=== PATIENT | female | born 1930 | race Caucasian/White ===

== ENCOUNTER 2016-12-13 15:34 | Emergency (ER) | payer OTHER ==
[~2016-12-13] VITALS: Ht 149.9 cm; Wt 94.5 kg
[~2016-12-13 15:34] MED LIST: ADVAIR 250/501 DISK IH; ADVAIR HFA120 INHALA IH; ASCORBIC ACID500 M3 PO; ASPIR-LOW81 MG PO; Amoxicillin PO; Aspirin E.C. PO; B-12 COMPL1000 MCG/1 SC; BETIMOL 0.100 DROP/5 RIGHT EYE; BETIMOL15 ML RIGHT EYE; Biaxin PO; C COMPLEX500 MG PO; CALCIUM; CALCIUM 500 MG1 EACH PO; CALCIUM 600 +1 EA12 PO; CALCIUM 600 +1 EACH PO; CALCIUM PO; CALCIUM500 M4 PO; CATAPRES0.1 MG; CATAPRES0.1 MG PO; CLONIDINE HCL0.1 MG PO; COUMADIN1 MG PO; COUMADIN2.5 MG PO; COUMADIN5 MG PO; COZAAR50 MG PO; CRANBERRY; CRANBERRY PO; CRANBERRY TABL1 EACH PO; CRANBERRY425 MG PO; CRANBERRY450 M1 PO; CYANOCOBAL1000 MCG/2 IM; Catapres PO; Colace PO; Coumadin,Jantoven PO; Cranberry PO; D3; DELTASONE20 M1 PO; DILANTIN INFATA50 MG PO; DILANTIN100 MG; DILANTIN100 MG PO; DILANTIN50 MG PO; DIOVAN HCT 11 TABLET PO; DIOVAN HCT 81 TABLET PO; DIOVAN PO; DOCUSATE SODIU100 MG PO; DULCOLAX10 MG PR; DUONEB 2.5-0.5 M3 ML AEROSOL; Dilantin PO; Diovan HCT 160/12.5 PO; Dulcolax PR; DuoNeb IH; ENDOCET 5-3251 EACH PO; FERROUS SULFAT325 MG PO; FISH OIL 1,0001 EA10 PO; FLEET MINERAL133 ML PR; FUROSEMIDE20 MG PO; FUROSEMIDE40 MG PO; GLUCOPHAGE1000 MG PO; Glucophage PO; Hydrodiuril,Oretic,E PO; IRON PO; IRON325 M1 PO; K-Dur PO; KEPPRA250 MG PO; KLOR-CON M2020 MEQ PO; LASIX20 MG PO; LASIX40 MG PO; LECITHIN PO; LEVAQUIN750 MG PO; LEVETIRACETAM250 MG PO; LEVOFLOXACIN500 MG PO; LEVOTHROID25 MCG PO; LEVOTHYROXINE PO; LEVOTHYROXINE25 MCG PO; LIDOCAINE700 MG TD; LOPRESSOR25 MG PO; LOPRESSOR50 MG PO; LOSARTAN POTASS25 MG PO; LOSARTAN POTASS50 MG PO; LOSARTAN-HCTZ1 EAC1 PO; Lasix PO; Levothroid,Synthroid PO; Lopressor PO; Lovenox SC; MECLIZINE HCL25 MG PO; METFORMIN HCL1000 M1; METFORMIN HCL1000 M1 PO; METFORMIN HCL1000 MG PO; METFORMIN HCL500 MG PO; METOPROLOL PO; METOPROLOL SUCC50 MG PO; METOPROLOL TART25 MG; METOPROLOL TART25 MG PO; METRONIDAZOLE500 MG PO; MILK OF MAGN PO; MIRTAZAPINE15 MG; MIRTAZAPINE15 MG PO; MIRTAZAPINE7.5 MG PO; Magic Mouthwash Garg MM; Milk Of Magnesia,MOM PO; Miralax, Glycolax PO; NEXIUM40 M1 PO; NEXIUM40 MG PO; NOVOLOG PE100 UNITS/ SC; NexIUM PO; OCUVITE ADULT1 EACH PO; OCUVITE LUTEIN1 EACH PO; OCUVITE PRESER1 EACH; OCUVITE TABLET1 EACH PO; OMEPRAZOLE20 M2 PO; OPTI-VITAMINS1 EACH PO; OXYCODONE-ACET1 EACH PO; Ocuvite PO; PERCOCET; POLYETHYLENE GL17 GM PO; POTASSIUM CHLO10 ME3 PO; PREDNISONE10 MG PO; PRILOSEC OTC20 MG PO; PROBIOTIC 10 PO; PROBIOTIC1 EAC1 PO; PROBIOTIC1 EAC3 PO; Percocet 5/325,Endoc PO; Protonix PO; REMERON15 M2 PO; Remeron PO; STOOL SOFTENER100 M1 PO; Senokot,Sennagen PO; TIMOLOL MALEATE15 M1 RIGHT EYE; TIMOPTIC-0100 DROP/1 RIGHT EYE; TRAMADOL HCL50 MG; TRAMADOL HCL50 MG PO; TRAVATAN Z5 ML BOTH EYES; TRAVATAN Z5 ML RIGHT EYE; TYLENOL ARTHRI650 M2 PO; TYLENOL ARTHRI650 MG PO; TYLENOL REGULA325 MG PO; Theragran PO; Timoptic-0.5%,Isatol RIGHT EYE; Travatan 0.004% Opht BOTH EYES; Tums,OsCal PO; Tylenol Extra Streng PO; ULTRAM50 MG PO; Ultram PO; VALSARTAN-HCTZ1 EAC1 PO; VALSARTAN-HCTZ1 EACH; VIBRAMYCIN100 MG PO; VITAMIN D2000 UNIT PO; VITAMIN D32000 UNI1 PO; VITAMINS PO; Vancocin Oral Soluti PO; Vitamin D PO; WARFARIN PO; WARFARIN SODIU2.5 MG PO; WARFARIN SODIUM1 MG PO; WARFARIN SODIUM2 MG PO; WARFARIN SODIUM4 MG PO; WARFARIN SODIUM5 MG PO; Xalatan 0.005% Ophth BOTH EYES; ZOFRAN4 MG PO; calcium PO
[2016-12-13 16:47] LABS: HEMATOCRIT 32.9 % (36.0-46.0); MCH 30.8 PG (29.0-34.0); MCHC 32.8 G/DL (30.0-36.0); MCV 93.7 FL (83-99); PLATELET COUNT 259 K/uL (156-360); RBC DIS.WIDTH-CV 13.6 % (11.8-14.6); RBC DIS.WIDTH-SD 44.6 % (39-53); RED BLOOD COUNT 3.51 M/uL (3.80-5.20); WHITE BLOOD COUNT 10.7 K/uL (4.1-10.2)
[2016-12-13 16:56] LABS: CHLORIDE 102 mEq/L (99-109); POTASSIUM 4.5 mEq/L (3.7-5.4); SODIUM 140 mEq/L (136-147)
[2016-12-13 16:57] LABS: GLUCOSE 113 mg/dL (70-99)
[2016-12-13 16:59] LABS: ANION GAP 10 MEQ/L (2-14)
[2016-12-13 17:01] LABS: GFR ESTIMATE (CALCULATED) 38 mL/min/
[2016-12-13 17:02] LABS: UREA NITROGEN (BUN) 37 mg/dL (9-23)
[2016-12-13 19:08] LABS: TROP-I INTERPRETATION NEGATIVE; TROPONIN-I 0.02 ng/mL (0.0-0.30)
[2016-12-13 19:35] LABS: ADD MIUA? YES; BILIRUBIN NEGATIVE; BLOOD NEGATIVE; COLOR YELLOW ((YELLOW)); GLUCOSE (STRIP) NEGATIVE; KETONES NEGATIVE; LEUKOCYTES MODERATE; NITRITE NEGATIVE; PH, URINE 5.5 (5-8); PROTEIN (STRIP) NEGATIVE; SPECIFIC GRAVITY 1.017 (1.000-1.030); UROBILINOGEN 0.2 MG/DL (0.2-1.0)
[2016-12-13 19:47] LABS: BACTERIA NONE SEEN /HPF; CASTS NONE SEEN /LPF; CRYSTALS NONE SEEN; EPITHELIAL CELLS RARE /HPF; MUCUS NONE SEEN /LPF; PATHOLOGICAL CAST NONE SEEN; RED BLOOD CELLS 0-5 /HPF (0-5); SMALL ROUND CELL NONE SEEN; UCUL ADDED? NO; WHITE BLOOD CELLS 20-30 /HPF (0-5); YEAST-LIKE CELL NONE SEEN
[2016-12-13] MEDS ORDERED: KEFLEX500 MG PO (21:23)
[2016-12-13 21:31] VITALS: BP 135/94
== END 2016-12-13 21:32 | disposition home or self-care (01) ==
LOC: EME 15:34
PROVIDERS: Physician Assistant
DX: N39.0 Urinary tract infection, site not specified (principal); R42 Dizziness and giddiness; R51 Headache; E11.9 Type 2 diabetes mellitus without complications; I10 Essential (primary) hypertension; E03.9 Hypothyroidism, unspecified; G40.909 Epilepsy, unspecified, not intractable, without status epilepticus
CPT/HCPCS: 70450; 71020; 80048; 81003; 84484; 85027; 93005; 99281; 99284

== ENCOUNTER 2017-04-08 04:09 | Inpatient (IN) | payer OTHER ==
[~2017-04-08] VITALS: Ht 149.9 cm; Wt 95.9 kg
[~2017-04-08 04:09] MED LIST changes: +KEFLEX500 MG PO
[2017-04-08 05:04] LABS: HEMATOCRIT 31.1 % (36.0-46.0); MCH 29.6 PG (29.0-34.0); MCHC 31.8 G/DL (30.0-36.0); MCV 92.8 FL (83-99); MEAN PLAT.VOLUME 8.9 uM^3 (9.5-12.4); PLATELET COUNT 232 K/uL (156-360); RBC DIS.WIDTH-CV 12.8 % (11.8-14.6); RBC DIS.WIDTH-SD 43.8 % (39-53); RED BLOOD COUNT 3.35 M/uL (3.80-5.20); WHITE BLOOD COUNT 8.1 K/uL (4.1-10.2)
[2017-04-08 05:26] LABS: CHLORIDE 97 mEq/L (99-109); SODIUM 138 mEq/L (136-147)
[2017-04-08 05:27] LABS: GLUCOSE 116 mg/dL (70-99)
[2017-04-08 05:29] LABS: ANION GAP 7 MEQ/L (2-14); TROP-I INTERPRETATION NEGATIVE; TROPONIN-I 0.02 ng/mL (0.0-0.30)
[2017-04-08 05:31] LABS: GFR ESTIMATE (CALCULATED) 45 mL/min/
[2017-04-08 05:32] LABS: UREA NITROGEN (BUN) 38 mg/dL (9-23)
[2017-04-08 06:32] LABS: ADD MIUA? YES; BILIRUBIN NEGATIVE; BLOOD SMALL; COLOR YELLOW ((YELLOW)); GLUCOSE (STRIP) NEGATIVE; KETONES NEGATIVE; LEUKOCYTES LARGE; NITRITE NEGATIVE; PROTEIN (STRIP) NEGATIVE; SPECIFIC GRAVITY 1.013 (1.000-1.030); UROBILINOGEN 0.2 MG/DL (0.2-1.0)
[2017-04-08 06:46] LABS: BACTERIA 3+ /HPF; EPITHELIAL CELLS RARE /HPF; MUCUS TRACE /LPF; RED BLOOD CELLS 0-5 /HPF (0-5); UCUL ADDED? YES; WHITE BLOOD CELLS TNTC /HPF (0-5)
[2017-04-08] MEDS ORDERED: DUONEB 2.5-0.5 M3 ML AEROSOL (09:27)
[2017-04-08] MEDS ORDERED: TOPROL XL50 MG PO (09:28)
[2017-04-08] MEDS ORDERED: LOSARTAN-HCTZ1 EAC1 PO (09:31)
[2017-04-08] MEDS ORDERED: LO-DOSE ASPIRIN81 M2 PO (09:31)
[2017-04-08] MEDS ORDERED: MIRTAZAPINE7.5 MG PO (09:33)
[2017-04-08] MEDS ORDERED: KLOR-CON M2020 MEQ PO (09:35)
[2017-04-08] MEDS ORDERED: LASIX20 MG PO (09:36)
[2017-04-08] MEDS ORDERED: ADVAIR 250/501 DISK IH (09:37)
[2017-04-08] MEDS ORDERED: CRANBERRY500 MG PO ×2 (09:44→09:45)
[2017-04-08] MEDS ORDERED: AMLODIPINE BESYL5 MG PO (09:46)
[2017-04-08] MEDS ORDERED: ONE DAILY MULT1 EACH PO (09:47)
[2017-04-08 10:49] VITALS: BP 179/79
[2017-04-08 12:25] VITALS: BP 152/66
[2017-04-08 12:43] LABS: TROP-I INTERPRETATION NEGATIVE; TROPONIN-I 0.02 ng/mL (0.0-0.30)
[2017-04-08 13:47] LABS: BASE EXCESS 11.3 mEq/L (-3 to +3); BICARBONATE 38.7 mEq/L (22-26); CARBOXY HGB 1.8 % (0-5); METHEMOGLOBIN 1.5 % (0-1.5); PO2 72 mm Hg (80-100)
[2017-04-08 13:48] LABS: PCO2 67 mm Hg (35-45); pH 7.37 (7.35-7.45)
[2017-04-08 13:49] LABS: COMMENTS - BLOOD GASES NAC+; DEVICE CANNULA; O2 FLOW 6 L/MIN; SITE LR
[2017-04-08 16:49] VITALS: BP 163/76
[2017-04-08 18:57] LABS: TROP-I INTERPRETATION NEGATIVE; TROPONIN-I 0.02 ng/mL (0.0-0.30)
[2017-04-08 19:47] VITALS: BP 132/69
[2017-04-08 23:46] VITALS: BP 140/57
[2017-04-09 03:18] VITALS: BP 134/58
[2017-04-09 06:12] LABS: POINT-OF-CARE METER ID UU14162508
[2017-04-09 07:30] LABS: ANION GAP 8 MEQ/L (2-14); CHLORIDE 95 MEQ/L (99-109); POTASSIUM 3.9 MEQ/L (3.7-5.4); SAMPLE HEMOLYSIS CHECK 0; SAMPLE ICTERIC CHECK 0; SAMPLE LIPEMIA CHECK 0; SODIUM 139 MEQ/L (136-147)
[2017-04-09 07:35] LABS: GFR ESTIMATE (CALCULATED) 56 mL/min/; GLUCOSE 117 mg/dL (70-99); UREA NITROGEN (BUN) 31 mg/dL (9-23)
[2017-04-09 08:25] VITALS: BP 141/65
[2017-04-09 13:04] VITALS: BP 148/73
[2017-04-09 16:31] VITALS: BP 137/64
[2017-04-09 19:25] VITALS: BP 130/78
[2017-04-09 22:02] LABS: POINT-OF-CARE METER ID UU14162508
[2017-04-09 23:22] VITALS: BP 135/73
[2017-04-10 02:59] LABS: POINT-OF-CARE METER ID UU14162508
[2017-04-10 07:30] LABS: EOSINOPHIL (%) 0 % (0-5); HEMATOCRIT 34.8 % (36.0-46.0); IMMATURE GRANULOCYTE (%) 0.4 % (0.0-0.7); INSTRUMENT ABS NEUTROPHIL CT 8.7 K/uL; LYMPHOCYTE COUNT 0.7 K/uL (1.0-2.8); MCH 30.5 PG (29.0-34.0); MCHC 32.2 G/DL (30.0-36.0); MCV 94.8 FL (83-99); MEAN PLAT.VOLUME 9.5 uM^3 (9.5-12.4); MONOCYTE (%) 5.4 % (3-12); MONOCYTE COUNT 0.5 K/uL (0-0.8); NEUTROPHIL COUNT 8.7 K/uL (1.8-6.4); PLATELET COUNT 270 K/uL (156-360); RBC DIS.WIDTH-CV 12.7 % (11.8-14.6); RBC DIS.WIDTH-SD 44.1 % (39-53); RED BLOOD COUNT 3.67 M/uL (3.80-5.20)
[2017-04-10 07:51] VITALS: BP 132/61
[2017-04-10 08:02] LABS: ANION GAP 12 MEQ/L (2-14); CHLORIDE 93 MEQ/L (99-109); GFR ESTIMATE (CALCULATED) 50 mL/min/; GLUCOSE 107 mg/dL (70-99); SAMPLE HEMOLYSIS CHECK 0; SAMPLE ICTERIC CHECK 0; SAMPLE LIPEMIA CHECK 0; SODIUM 140 MEQ/L (136-147); UREA NITROGEN (BUN) 42 mg/dL (9-23)
[2017-04-10 11:56] VITALS: BP 155/65
[2017-04-10 12:02] LABS: POINT-OF-CARE METER ID UU14162508
[2017-04-10 17:23] VITALS: BP 126/61
[2017-04-11 00:08] VITALS: BP 136/61
[2017-04-11 07:28] LABS: EOSINOPHIL (%) 0 % (0-5); IMMATURE GRANULOCYTE (%) 0.4 % (0.0-0.7); INSTRUMENT ABS NEUTROPHIL CT 6.9 K/uL; LYMPHOCYTE COUNT 0.5 K/uL (1.0-2.8); MCHC 32.1 G/DL (30.0-36.0); MCV 93.7 FL (83-99); MEAN PLAT.VOLUME 9.7 uM^3 (9.5-12.4); MONOCYTE (%) 3.7 % (3-12); MONOCYTE COUNT 0.3 K/uL (0-0.8); NEUTROPHIL (%) 89.1 % (45-76); NEUTROPHIL COUNT 6.9 K/uL (1.8-6.4); PLATELET COUNT 286 K/uL (156-360); RBC DIS.WIDTH-SD 44.5 % (39-53); RED BLOOD COUNT 3.63 M/uL (3.80-5.20); WHITE BLOOD COUNT 7.8 K/uL (4.1-10.2)
[2017-04-11 07:52] LABS: ANION GAP 9 MEQ/L (2-14); CHLORIDE 95 MEQ/L (99-109); GFR ESTIMATE (CALCULATED) 45 mL/min/; POTASSIUM 3.9 MEQ/L (3.7-5.4); SAMPLE HEMOLYSIS CHECK 0; SAMPLE ICTERIC CHECK 0; SAMPLE LIPEMIA CHECK 0; SODIUM 140 MEQ/L (136-147); UREA NITROGEN (BUN) 55 mg/dL (9-23)
[2017-04-11 07:53] LABS: GLUCOSE 214 mg/dL (70-99)
[2017-04-11 08:00] VITALS: BP 157/68
[2017-04-11 16:17] LABS: POINT-OF-CARE METER ID UU14162508
[2017-04-11 16:20] LABS: POINT-OF-CARE METER ID UU14162508
[2017-04-11 17:24] LABS: POINT-OF-CARE METER ID UU14162508
[2017-04-11 20:55] VITALS: BP 140/64
[2017-04-11 22:37] LABS: POINT-OF-CARE METER ID UU14162508
[2017-04-12 00:14] VITALS: BP 178/78
[2017-04-12 07:18] LABS: EOSINOPHIL (%) 0 % (0-5); HEMATOCRIT 35.6 % (36.0-46.0); IMMATURE GRANULOCYTE (%) 0.5 % (0.0-0.7); IMMATURE GRANULOCYTE COUNT 0.1 K/uL; INSTRUMENT ABS NEUTROPHIL CT 8.9 K/uL; LYMPHOCYTE COUNT 0.7 K/uL (1.0-2.8); MCH 29.3 PG (29.0-34.0); MCHC 31.2 G/DL (30.0-36.0); MCV 93.9 FL (83-99); MEAN PLAT.VOLUME 9.7 uM^3 (9.5-12.4); MONOCYTE (%) 4.1 % (3-12); MONOCYTE COUNT 0.4 K/uL (0-0.8); NEUTROPHIL (%) 88.7 % (45-76); NEUTROPHIL COUNT 8.9 K/uL (1.8-6.4); PLATELET COUNT 307 K/uL (156-360); RBC DIS.WIDTH-CV 13.1 % (11.8-14.6); RED BLOOD COUNT 3.79 M/uL (3.80-5.20); WHITE BLOOD COUNT 10.1 K/uL (4.1-10.2)
[2017-04-12 07:55] LABS: ANION GAP 9 MEQ/L (2-14); CHLORIDE 94 MEQ/L (99-109); GFR ESTIMATE (CALCULATED) 41 mL/min/; GLUCOSE 194 mg/dL (70-99); POTASSIUM 4.2 MEQ/L (3.7-5.4); SAMPLE HEMOLYSIS CHECK 0; SAMPLE ICTERIC CHECK 0; SAMPLE LIPEMIA CHECK 0; SODIUM 142 MEQ/L (136-147); UREA NITROGEN (BUN) 54 mg/dL (9-23)
[2017-04-12 08:38] VITALS: BP 132/76
[2017-04-12 12:09] LABS: POINT-OF-CARE METER ID UU14162508
[2017-04-12 13:11] LABS: GLUCOSE 389 mg/dL (70-99)
[2017-04-12 15:43] VITALS: BP 122/66
[2017-04-12 23:55] VITALS: BP 141/74
[2017-04-13 07:26] LABS: HEMATOCRIT 34.3 % (36.0-46.0); MCH 29.8 PG (29.0-34.0); MCHC 31.5 G/DL (30.0-36.0); MCV 94.5 FL (83-99); MEAN PLAT.VOLUME 9.8 uM^3 (9.5-12.4); PLATELET COUNT 286 K/uL (156-360); RBC DIS.WIDTH-CV 13.1 % (11.8-14.6); RBC DIS.WIDTH-SD 45.1 % (39-53); RED BLOOD COUNT 3.63 M/uL (3.80-5.20); WHITE BLOOD COUNT 9.3 K/uL (4.1-10.2)
[2017-04-13 08:02] LABS: ANION GAP 8 MEQ/L (2-14); CHLORIDE 95 MEQ/L (99-109); GFR ESTIMATE (CALCULATED) 55 mL/min/; POTASSIUM 4.3 MEQ/L (3.7-5.4); SAMPLE HEMOLYSIS CHECK 0; SAMPLE ICTERIC CHECK 0; SAMPLE LIPEMIA CHECK 0; SODIUM 141 MEQ/L (136-147); UREA NITROGEN (BUN) 53 mg/dL (9-23)
[2017-04-13 08:04] LABS: GLUCOSE 169 mg/dL (70-99)
[2017-04-13 08:23] VITALS: BP 142/81
[2017-04-13 10:56] VITALS: BP 146/70
[2017-04-13 15:22] VITALS: BP 130/66
[2017-04-13 19:08] VITALS: BP 135/62
[2017-04-13 21:35] LABS: POINT-OF-CARE METER ID UU14162508
[2017-04-13 23:39] VITALS: BP 130/69
[2017-04-14 06:38] LABS: POINT-OF-CARE METER ID UU14162508
[2017-04-14 06:48] LABS: HEMATOCRIT 33.8 % (36.0-46.0); MCH 30.2 PG (29.0-34.0); MCV 94.4 FL (83-99); MEAN PLAT.VOLUME 9.8 uM^3 (9.5-12.4); PLATELET COUNT 262 K/uL (156-360); RBC DIS.WIDTH-CV 13.1 % (11.8-14.6); RBC DIS.WIDTH-SD 45.1 % (39-53); RED BLOOD COUNT 3.58 M/uL (3.80-5.20); WHITE BLOOD COUNT 8.3 K/uL (4.1-10.2)
[2017-04-14 06:50] VITALS: BP 148/67
[2017-04-14 07:14] LABS: ANION GAP 5 MEQ/L (2-14); CHLORIDE 95 MEQ/L (99-109); GFR ESTIMATE (CALCULATED) 55 mL/min/; GLUCOSE 185 mg/dL (70-99); POTASSIUM 4.4 MEQ/L (3.7-5.4); SAMPLE HEMOLYSIS CHECK 0; SAMPLE ICTERIC CHECK 0; SAMPLE LIPEMIA CHECK 0; SODIUM 138 MEQ/L (136-147); UREA NITROGEN (BUN) 45 mg/dL (9-23)
[2017-04-14 12:10] LABS: POINT-OF-CARE METER ID UU14162508
[2017-04-14 14:38] LABS: POINT-OF-CARE METER ID UU14162508; POINT-OF-CARE USER ID PUTDRM
[2017-04-14 15:17] VITALS: BP 129/59
[2017-04-14 16:22] LABS: POINT-OF-CARE METER ID UU14162508
[2017-04-14 23:17] VITALS: BP 144/72
[2017-04-15 06:50] VITALS: BP 122/60; BP 142/74
[2017-04-15 07:10] LABS: HEMATOCRIT 34.1 % (36.0-46.0); MCH 30.5 PG (29.0-34.0); MCV 95.5 FL (83-99); MEAN PLAT.VOLUME 9.7 uM^3 (9.5-12.4); PLATELET COUNT 259 K/uL (156-360); RBC DIS.WIDTH-CV 13.2 % (11.8-14.6); RBC DIS.WIDTH-SD 46.3 % (39-53); RED BLOOD COUNT 3.57 M/uL (3.80-5.20); WHITE BLOOD COUNT 8.8 K/uL (4.1-10.2)
[2017-04-15 07:40] LABS: ANION GAP 8 MEQ/L (2-14); CHLORIDE 97 MEQ/L (99-109); GFR ESTIMATE (CALCULATED) 50 mL/min/; GLUCOSE 180 mg/dL (70-99); POTASSIUM 4.6 MEQ/L (3.7-5.4); SAMPLE HEMOLYSIS CHECK 0; SAMPLE ICTERIC CHECK 0; SAMPLE LIPEMIA CHECK 0; SODIUM 141 MEQ/L (136-147); UREA NITROGEN (BUN) 42 mg/dL (9-23)
[2017-04-15 11:47] LABS: POINT-OF-CARE METER ID UU14162508
[2017-04-15 12:42] VITALS: BP 132/63
[2017-04-15 16:15] LABS: POINT-OF-CARE METER ID UU14162508
[2017-04-15 16:33] VITALS: BP 145/63
[2017-04-15 19:00] VITALS: BP 134/60
[2017-04-15 23:14] VITALS: BP 139/66
[2017-04-16 05:20] VITALS: BP 130/60
[2017-04-16 06:45] LABS: HEMATOCRIT 32.3 % (36.0-46.0); MCH 29.6 PG (29.0-34.0); MCHC 31.6 G/DL (30.0-36.0); MCV 93.6 FL (83-99); MEAN PLAT.VOLUME 9.7 uM^3 (9.5-12.4); NRBC (%) 0.2 /100 WBC (0-0); PLATELET COUNT 286 K/uL (156-360); RBC DIS.WIDTH-CV 13.2 % (11.8-14.6); RED BLOOD COUNT 3.45 M/uL (3.80-5.20); WHITE BLOOD COUNT 11.9 K/uL (4.1-10.2)
[2017-04-16 06:51] LABS: ANION GAP 6 MEQ/L (2-14); CHLORIDE 98 MEQ/L (99-109); GFR ESTIMATE (CALCULATED) > 59 mL/min/; GLUCOSE 183 mg/dL (70-99); POTASSIUM 4.5 MEQ/L (3.7-5.4); SAMPLE HEMOLYSIS CHECK 0; SAMPLE ICTERIC CHECK 0; SAMPLE LIPEMIA CHECK 0; SODIUM 137 MEQ/L (136-147); UREA NITROGEN (BUN) 45 mg/dL (9-23)
[2017-04-16 07:06] VITALS: BP 140/64
[2017-04-16 07:17] LABS: POINT-OF-CARE METER ID UU14162508
[2017-04-16 11:32] VITALS: BP 133/63
[2017-04-16 11:47] LABS: POINT-OF-CARE METER ID UU14162508
[2017-04-16 15:55] VITALS: BP 135/62
[2017-04-16 16:08] LABS: POINT-OF-CARE METER ID UU14162508
[2017-04-16 19:05] VITALS: BP 119/56
[2017-04-16 21:43] LABS: POINT-OF-CARE USER ID 609231305
[2017-04-17] VITALS (7 sets, daily range): BP systolic 115–141; BP diastolic 50–74
[2017-04-17 06:46] LABS: MCH 30.2 PG (29.0-34.0); MCHC 31.9 G/DL (30.0-36.0); MCV 94.7 FL (83-99); MEAN PLAT.VOLUME 9.5 uM^3 (9.5-12.4); PLATELET COUNT 286 K/uL (156-360); RBC DIS.WIDTH-CV 13.5 % (11.8-14.6); RBC DIS.WIDTH-SD 46.7 % (39-53); RED BLOOD COUNT 3.38 M/uL (3.80-5.20); WHITE BLOOD COUNT 12.7 K/uL (4.1-10.2)
[2017-04-17 07:15] LABS: ANION GAP 6 MEQ/L (2-14); CHLORIDE 100 MEQ/L (99-109); GFR ESTIMATE (CALCULATED) > 59 mL/min/; GLUCOSE 144 mg/dL (70-99); POTASSIUM 4.9 MEQ/L (3.7-5.4); SAMPLE HEMOLYSIS CHECK 0; SAMPLE ICTERIC CHECK 0; SAMPLE LIPEMIA CHECK 0; SODIUM 139 MEQ/L (136-147); UREA NITROGEN (BUN) 51 mg/dL (9-23)
[2017-04-17 08:34] LABS: BASE EXCESS 11.3 mEq/L (-3 to +3); BICARBONATE 37.6 mEq/L (22-26); CARBOXY HGB 1.7 % (0-5); METHEMOGLOBIN 1.2 % (0-1.5); pH 7.42 (7.35-7.45)
[2017-04-17 08:35] LABS: COMMENTS - BLOOD GASES A+C+; DEVICE NC; O2 FLOW 5 L/MIN; PCO2 58 mm Hg (35-45); PO2 89 mm Hg (80-100); SITE LR; TOTAL RESP RATE 30 resp/min
[2017-04-17 17:52] LABS: GLUCOSE 460 mg/dL (70-99)
[2017-04-18 06:40] LABS: HEMATOCRIT 30.2 % (36.0-46.0); MCHC 31.5 G/DL (30.0-36.0); MCV 95.3 FL (83-99); MEAN PLAT.VOLUME 9.7 uM^3 (9.5-12.4); PLATELET COUNT 294 K/uL (156-360); RBC DIS.WIDTH-CV 13.5 % (11.8-14.6); RBC DIS.WIDTH-SD 47.4 % (39-53); RED BLOOD COUNT 3.17 M/uL (3.80-5.20); WHITE BLOOD COUNT 13.7 K/uL (4.1-10.2)
[2017-04-18 06:45] LABS: POINT-OF-CARE METER ID UU14162508
[2017-04-18 07:18] LABS: ANION GAP 7 MEQ/L (2-14); CHLORIDE 103 MEQ/L (99-109); GFR ESTIMATE (CALCULATED) 50 mL/min/; GLUCOSE 159 mg/dL (70-99); SAMPLE HEMOLYSIS CHECK 0; SAMPLE ICTERIC CHECK 0; SAMPLE LIPEMIA CHECK 0; SODIUM 140 MEQ/L (136-147); UREA NITROGEN (BUN) 53 mg/dL (9-23)
[2017-04-18 07:35] VITALS: BP 125/57
[2017-04-18 11:05] VITALS: BP 122/60
[2017-04-18] MEDS ORDERED: PREDNISONE10 M1 PO (11:33)
[2017-04-18 20:00] VITALS: BP 101/54
[2017-04-18 21:55] LABS: POINT-OF-CARE METER ID UU14162508
[2017-04-18 23:38] VITALS: BP 119/55
[2017-04-19 06:57] LABS: POINT-OF-CARE METER ID UU14162508
[2017-04-19 07:23] LABS: HEMATOCRIT 28.4 % (36.0-46.0); MCHC 31.3 G/DL (30.0-36.0); MCV 95.6 FL (83-99); MEAN PLAT.VOLUME 9.8 uM^3 (9.5-12.4); PLATELET COUNT 290 K/uL (156-360); RBC DIS.WIDTH-CV 13.9 % (11.8-14.6); RBC DIS.WIDTH-SD 48.2 % (39-53); RED BLOOD COUNT 2.97 M/uL (3.80-5.20); WHITE BLOOD COUNT 10.6 K/uL (4.1-10.2)
[2017-04-19 07:52] LABS: ANION GAP 5 MEQ/L (2-14); CHLORIDE 103 MEQ/L (99-109); GFR ESTIMATE (CALCULATED) 55 mL/min/; GLUCOSE 131 mg/dL (70-99); POTASSIUM 4.9 MEQ/L (3.7-5.4); SAMPLE HEMOLYSIS CHECK 0; SAMPLE ICTERIC CHECK 0; SAMPLE LIPEMIA CHECK 0; SODIUM 140 MEQ/L (136-147); UREA NITROGEN (BUN) 46 mg/dL (9-23)
[2017-04-19 07:55] VITALS: BP 115/56
[2017-04-19 11:49] VITALS: BP 125/59
[2017-04-19 12:01] LABS: POINT-OF-CARE METER ID UU14162508
[2017-04-19] MEDS ORDERED: DUONEB 2.5-0.5 M3 ML IPPB (13:33)
[2017-04-19] MEDS ORDERED: DUONEB 2.5-0.5 M3 ML AEROSOL (13:33)
[2017-04-19] MEDS ORDERED: LOVENOX40 MG/0.4 SC (13:34)
[2017-04-19] MEDS ORDERED: NOVOLOG PE100 UNITS/ SC (13:39)
[2017-04-19] MEDS ORDERED: GLUCAGEN1 MG IM/SC (13:40)
[2017-04-19] MEDS ORDERED: LEVEMIR100 UNIT/2 SC (13:40)
[2017-04-19] MEDS ORDERED: Zeasorb Antifungal T TP (13:42)
== END 2017-04-19 16:19 | DRG 189 ==
LOC: EME 04:09 → EDOF 07:32 → 2EAST 07:32
PROVIDERS: Emergency Medicine; Hospitalist; Internal Medicine; Student in an Organized Health Care Education/Training Program
DX: J96.21 Acute and chronic respiratory failure with hypoxia (principal); Z68.41 Body mass index [BMI] 40.0-44.9, adult; J44.1 Chronic obstructive pulmonary disease with (acute) exacerbation; I27.2 Other secondary pulmonary hypertension; E66.2 Morbid (severe) obesity with alveolar hypoventilation; N30.91 Cystitis, unspecified with hematuria; I27.81 Cor pulmonale (chronic); R27.0 Ataxia, unspecified; E03.9 Hypothyroidism, unspecified; G47.33 Obstructive sleep apnea (adult) (pediatric); I10 Essential (primary) hypertension; J98.11 Atelectasis; D64.9 Anemia, unspecified; W18.30XA Fall on same level, unspecified, initial encounter; S80.01XA Contusion of right knee, initial encounter; S80.02XA Contusion of left knee, initial encounter; Z66 Do not resuscitate; R60.0 Localized edema; Z91.19 Patient's noncompliance with other medical treatment and regimen; Z86.718 Personal history of other venous thrombosis and embolism; Z87.440 Personal history of urinary (tract) infections; Z99.81 Dependence on supplemental oxygen; Z88.8 Allergy status to other drugs, medicaments and biological substances
CPT/HCPCS: 36600; 70450; 71010; 71020; 71250; 71275; 73564; 80048; 81003; 82803; 82948; 83605; 83880; 84443; 84484; 84999; 85025; 85027; 85610; 87040; 87070; 87077; 87086; 87186; 87205; 87449; 93005; 93306; 93970; 94010; 94640; 94640 76; 94667; 94668; 94760; 94799; 97530 GP; 99202; 99281; 99285; J0696; J1650; J1815; J1940; J2543; J2920; J2930; J3370; J7050; J7512

== ENCOUNTER 2017-09-11 05:11 | Inpatient (IN) | payer OTHER ==
[~2017-09-11] VITALS: Ht 149.9 cm; Wt 96.6 kg
[~2017-09-11 05:11] MED LIST changes: +AMLODIPINE BESYL5 MG PO; +CRANBERRY500 M2 PO; +DUONEB 2.5-0.5 M3 ML IPPB; +GLUCAGEN1 MG IM/SC; +LEVEMIR100 UNIT/2 SC; +LO-DOSE ASPIRIN81 M2 PO; +LOVENOX40 MG/0.4 SC; +NORVASC5 MG PO; +ONE DAILY MULT1 EACH PO; +PREDNISONE10 M1 PO; +TOPROL XL50 MG PO; +Zeasorb Antifungal T TP
[2017-09-11 05:54] LABS: HEMATOCRIT 30.8 % (36.0-46.0); MCH 29.5 PG (29.0-34.0); MCHC 33.4 G/DL (30.0-36.0); MCV 88.3 FL (83-99); MEAN PLAT.VOLUME 8.9 uM^3 (9.5-12.4); PLATELET COUNT 277 K/uL (156-360); RBC DIS.WIDTH-CV 12.9 % (11.8-14.6); RED BLOOD COUNT 3.49 M/uL (3.80-5.20); WHITE BLOOD COUNT 6.4 K/uL (4.1-10.2)
[2017-09-11 05:57] LABS: CARBON DIOXIDE (BICARBONATE) 29.7 MEQ/L (20-31)
[2017-09-11 06:16] LABS: CHLORIDE 94 mEq/L (99-109); POTASSIUM 4.6 mEq/L (3.7-5.4); SODIUM 130 mEq/L (136-147)
[2017-09-11 06:17] LABS: TROP-I INTERPRETATION NEGATIVE; TROPONIN-I 0.01 ng/mL (0.0-0.30)
[2017-09-11 06:18] LABS: GLUCOSE 87 mg/dL (70-99)
[2017-09-11 06:19] LABS: ANION GAP 12 MEQ/L (2-14)
[2017-09-11 06:21] LABS: GFR ESTIMATE (CALCULATED) 35 mL/min/
[2017-09-11 06:22] LABS: UREA NITROGEN (BUN) 28 mg/dL (9-23)
[2017-09-11 07:34] LABS: ADD MIUA? YES; BILIRUBIN NEGATIVE; BLOOD NEGATIVE; COLOR STRAW ((YELLOW)); GLUCOSE (STRIP) NEGATIVE; KETONES NEGATIVE; LEUKOCYTES TRACE; NITRITE NEGATIVE; PROTEIN (STRIP) NEGATIVE; UROBILINOGEN 0.2 MG/DL (0.2-1.0)
[2017-09-11 07:38] LABS: BACTERIA NONE SEEN /HPF; EPITHELIAL CELLS RARE /HPF; MUCUS TRACE /LPF; RED BLOOD CELLS 0-5 /HPF (0-5); UCUL ADDED? NO; WHITE BLOOD CELLS 0-5 /HPF (0-5)
[2017-09-11] MEDS ORDERED: BACTRIM,SEPT1 TABLET PO (11:20)
[2017-09-11 11:54] LABS: POINT-OF-CARE METER ID UU14314084
[2017-09-11 12:24] VITALS: BP 136/65
[2017-09-11 13:05] LABS: ANION GAP 13 MEQ/L (2-14); CHLORIDE 99 MEQ/L (99-109); GFR ESTIMATE (CALCULATED) 41 mL/min/; GLUCOSE 95 mg/dL (70-99); POTASSIUM 4.7 MEQ/L (3.7-5.4); SAMPLE HEMOLYSIS CHECK 0; SAMPLE ICTERIC CHECK 0; SAMPLE LIPEMIA CHECK 0; SODIUM 133 MEQ/L (136-147); UREA NITROGEN (BUN) 25 mg/dL (9-23)
[2017-09-11 15:54] VITALS: BP 131/61
[2017-09-11 16:25] LABS: INFLUENZA A VIRAL ANTIGEN NEGATIVE; INFLUENZA B VIRAL ANTIGEN NEGATIVE
[2017-09-11 16:47] LABS: POINT-OF-CARE METER ID UU14208750
[2017-09-11 20:22] VITALS: BP 138/74
[2017-09-11 21:32] LABS: POINT-OF-CARE METER ID UU14208750
[2017-09-12] VITALS: BP 138/88
[2017-09-12 03:58] VITALS: BP 147/67
[2017-09-12 06:25] LABS: POINT-OF-CARE METER ID UU14208750
[2017-09-12 07:05] VITALS: BP 133/60
[2017-09-12 07:08] LABS: HEMATOCRIT 29.6 % (36.0-46.0); MCH 28.9 PG (29.0-34.0); MCHC 32.8 G/DL (30.0-36.0); MCV 88.1 FL (83-99); MEAN PLAT.VOLUME 8.9 uM^3 (9.5-12.4); PLATELET COUNT 279 K/uL (156-360); RBC DIS.WIDTH-CV 12.8 % (11.8-14.6); RED BLOOD COUNT 3.36 M/uL (3.80-5.20)
[2017-09-12 07:35] LABS: ANION GAP 9 MEQ/L (2-14); CHLORIDE 100 MEQ/L (99-109); GFR ESTIMATE (CALCULATED) 45 mL/min/; POTASSIUM 4.8 MEQ/L (3.7-5.4); SAMPLE HEMOLYSIS CHECK 0; SAMPLE ICTERIC CHECK 0; SAMPLE LIPEMIA CHECK 0; SODIUM 132 MEQ/L (136-147); UREA NITROGEN (BUN) 22 mg/dL (9-23)
[2017-09-12 07:36] LABS: GLUCOSE 143 mg/dL (70-99)
[2017-09-12 11:27] LABS: POINT-OF-CARE METER ID UU14162508
[2017-09-12 11:35] VITALS: BP 152/65
[2017-09-12 15:51] VITALS: BP 157/70
[2017-09-12 16:01] LABS: POINT-OF-CARE METER ID UU14208750
[2017-09-12 20:13] VITALS: BP 139/65
[2017-09-12 21:53] LABS: POINT-OF-CARE METER ID UU14314084
[2017-09-13] VITALS (7 sets, daily range): BP systolic 120–146; BP diastolic 56–81
[2017-09-13 06:13] LABS: POINT-OF-CARE METER ID UU14208750
[2017-09-13 10:34] LABS: HEMATOCRIT 31.4 % (36.0-46.0); MCH 29.9 PG (29.0-34.0); MCHC 33.1 G/DL (30.0-36.0); MCV 90.2 FL (83-99); MEAN PLAT.VOLUME 9.3 uM^3 (9.5-12.4); PLATELET COUNT 268 K/uL (156-360); RBC DIS.WIDTH-CV 13.1 % (11.8-14.6); RBC DIS.WIDTH-SD 42.7 % (39-53); RED BLOOD COUNT 3.48 M/uL (3.80-5.20); WHITE BLOOD COUNT 8.9 K/uL (4.1-10.2)
[2017-09-13 10:56] LABS: ANION GAP 10 MEQ/L (2-14); CHLORIDE 101 MEQ/L (99-109); POTASSIUM 4.7 MEQ/L (3.7-5.4); SAMPLE HEMOLYSIS CHECK 0; SAMPLE ICTERIC CHECK 0; SAMPLE LIPEMIA CHECK 0; SODIUM 136 MEQ/L (136-147)
[2017-09-13 11:01] LABS: GFR ESTIMATE (CALCULATED) 41 mL/min/; GLUCOSE 113 mg/dL (70-99); UREA NITROGEN (BUN) 31 mg/dL (9-23)
[2017-09-13 11:21] LABS: POINT-OF-CARE METER ID UU14314084
[2017-09-13 16:30] LABS: POINT-OF-CARE METER ID UU14208750
[2017-09-13 21:22] LABS: POINT-OF-CARE METER ID UU14208750
[2017-09-14 03:42] VITALS: BP 126/68
[2017-09-14 08:09] LABS: POINT-OF-CARE METER ID UU14208750
[2017-09-14 08:20] VITALS: BP 142/83
[2017-09-14] MEDS ORDERED: CEFDINIR300 MG PO (11:06)
[2017-09-14] MEDS ORDERED: SPIRIVA RESPIMAT4 GM IH (11:07)
[2017-09-14] MEDS ORDERED: MONTELUKAST SOD10 MG PO (11:08)
[2017-09-14] MEDS ORDERED: MUCINEX600 MG PO (11:08)
[2017-09-14] MEDS ORDERED: DOCUSATE SODIU100 MG PO (11:10)
[2017-09-14] MEDS ORDERED: PREDNISONE10 MG PO (11:10)
[2017-09-14 11:20] VITALS: BP 132/62
[2017-09-14 11:31] LABS: POINT-OF-CARE METER ID UU14208750
[2017-09-14 16:35] LABS: POINT-OF-CARE METER ID UU14208750
== END 2017-09-14 18:21 | DRG 193 ==
LOC: EME → EDBD 05:11 → EME 05:11 → EDOF 09:43 → 2EAST 09:43 → ENRESERV 09:46 → EDOF 09:53 → ENRESERV 10:01 → 2EAST 11:07
PROVIDERS: Emergency Medicine; Internal Medicine; Physician Assistant Medical
PROC: 5A09358 Assistance with Respiratory Ventilation, Less than 24 Consecutive Hours, Intermittent Positive Airway Pressure (ICD-10-PCS; principal; 2017-09-11)
DX: J18.9 Pneumonia, unspecified organism (principal); J44.0 Chronic obstructive pulmonary disease with (acute) lower respiratory infection; J96.21 Acute and chronic respiratory failure with hypoxia; J96.22 Acute and chronic respiratory failure with hypercapnia; N17.8 Other acute kidney failure; J44.1 Chronic obstructive pulmonary disease with (acute) exacerbation; J20.9 Acute bronchitis, unspecified; J45.901 Unspecified asthma with (acute) exacerbation; I12.9 Hypertensive chronic kidney disease with stage 1 through stage 4 chronic kidney disease, or unspecified chronic kidney disease; N18.3 Chronic kidney disease, stage 3 (moderate); G47.33 Obstructive sleep apnea (adult) (pediatric); I27.20 Pulmonary hypertension, unspecified; E87.1 Hypo-osmolality and hyponatremia; E86.0 Dehydration; E87.2 Acidosis; E11.9 Type 2 diabetes mellitus without complications; K59.09 Other constipation; G47.00 Insomnia, unspecified; F32.9 Major depressive disorder, single episode, unspecified; G40.909 Epilepsy, unspecified, not intractable, without status epilepticus; H40.9 Unspecified glaucoma; E03.9 Hypothyroidism, unspecified; D64.9 Anemia, unspecified; E66.9 Obesity, unspecified; Z68.41 Body mass index [BMI] 40.0-44.9, adult; Z99.81 Dependence on supplemental oxygen; Z79.82 Long term (current) use of aspirin; Z79.84 Long term (current) use of oral hypoglycemic drugs; Z86.718 Personal history of other venous thrombosis and embolism; Z87.440 Personal history of urinary (tract) infections; Z87.891 Personal history of nicotine dependence
CPT/HCPCS: 71010; 71275; 74000; 80048; 80048 91; 81003; 82803; 82948; 83605; 83880; 84443; 84484; 85027; 87040; 87086; 87502; 93005; 94640; 94640 76; 94660; 94799; 97530 GP; 99202; 99281; 99285; J0456; J0696; J1644; J1815; J2920; J7030; J7050; J7512

== ENCOUNTER 2017-09-28 20:11 | Emergency (ER) | payer OTHER ==
[~2017-09-28] VITALS: Ht 149.9 cm; Wt 93.6 kg
[~2017-09-28 20:11] MED LIST changes: +BACTRIM,SEPT1 TABLET PO; +CEFDINIR300 MG PO; +MONTELUKAST SOD10 MG PO; +MUCINEX600 MG PO; +SPIRIVA RESPIMAT4 GM IH
[2017-09-29 00:12] VITALS: BP 114/57
== END 2017-09-29 00:19 ==
LOC: EME 20:11
PROC: 0HQKXZZ Repair Right Lower Leg Skin, External Approach (ICD-10-PCS; principal; 2017-09-28)
DX: T81.31XA Disruption of external operation (surgical) wound, not elsewhere classified, initial encounter (principal); S81.811D Laceration without foreign body, right lower leg, subsequent encounter; X58.XXXA Exposure to other specified factors, initial encounter; Y93.89 Activity, other specified; K21.9 Gastro-esophageal reflux disease without esophagitis; E03.9 Hypothyroidism, unspecified; I10 Essential (primary) hypertension; J44.9 Chronic obstructive pulmonary disease, unspecified; E11.9 Type 2 diabetes mellitus without complications; F32.9 Major depressive disorder, single episode, unspecified; Z86.718 Personal history of other venous thrombosis and embolism; Z79.84 Long term (current) use of oral hypoglycemic drugs; Z79.82 Long term (current) use of aspirin; Z87.891 Personal history of nicotine dependence; Z88.8 Allergy status to other drugs, medicaments and biological substances
CPT/HCPCS: 99281; 99284

== ENCOUNTER 2017-10-03 16:19 | Inpatient (IN) | payer OTHER ==
[~2017-10-03] VITALS: Ht 149.9 cm; Wt 94.5 kg
[2017-10-03 18:47] LABS: EOSINOPHIL (%) 1.9 % (0-5); EOSINOPHIL COUNT 0.3 K/uL (0-0.3); HEMATOCRIT 25.7 % (36.0-46.0); IMMATURE GRANULOCYTE (%) 0.5 % (0.0-0.7); IMMATURE GRANULOCYTE COUNT 0.1 K/uL; INSTRUMENT ABS NEUTROPHIL CT 11.1 K/uL; LYMPHOCYTE COUNT 0.8 K/uL (1.0-2.8); MCH 29.7 PG (29.0-34.0); MCHC 31.9 G/DL (30.0-36.0); MCV 93.1 FL (83-99); MEAN PLAT.VOLUME 9.7 uM^3 (9.5-12.4); MONOCYTE (%) 7.8 % (3-12); NEUTROPHIL (%) 83.5 % (45-76); NEUTROPHIL COUNT 11.1 K/uL (1.8-6.4); PLATELET COUNT 250 K/uL (156-360); RBC DIS.WIDTH-CV 13.2 % (11.8-14.6); RBC DIS.WIDTH-SD 44.5 % (39-53); WHITE BLOOD COUNT 13.2 K/uL (4.1-10.2)
[2017-10-03 18:48] LABS: RED BLOOD COUNT 2.76 M/uL (3.80-5.20)
[2017-10-03 18:54] LABS: CHLORIDE 104 mEq/L (99-109); POTASSIUM 3.8 mEq/L (3.7-5.4); SODIUM 137 mEq/L (136-147)
[2017-10-03 18:57] LABS: GLUCOSE 135 mg/dL (70-99)
[2017-10-03 18:58] LABS: ANION GAP 9 MEQ/L (2-14)
[2017-10-03 18:59] LABS: TOTAL BILIRUBIN 0.2 mg/dL (0.0-1.0)
[2017-10-03 19:00] LABS: ALKALINE PHOSPHATASE 65 IU/L (3-129); GFR ESTIMATE (CALCULATED) 41 mL/min/
[2017-10-03 19:01] LABS: TROP-I INTERPRETATION NEGATIVE; TROPONIN-I 0.05 ng/mL (0.0-0.30); UREA NITROGEN (BUN) 32 mg/dL (9-23)
[2017-10-03 19:33] LABS: ADD MIUA? YES; BILIRUBIN NEGATIVE; BLOOD NEGATIVE; COLOR YELLOW ((YELLOW)); GLUCOSE (STRIP) NEGATIVE; KETONES NEGATIVE; LEUKOCYTES TRACE; NITRITE NEGATIVE; PROTEIN (STRIP) NEGATIVE; SPECIFIC GRAVITY 1.013 (1.000-1.030); UROBILINOGEN 0.2 MG/DL (0.2-1.0)
[2017-10-03 20:04] LABS: BACTERIA NONE SEEN /HPF; EPITHELIAL CELLS RARE /HPF; MUCUS TRACE /LPF; RED BLOOD CELLS 0-5 /HPF (0-5); UCUL ADDED? NO; URIC ACID CRYSTALS 1+ /HPF; WHITE BLOOD CELLS 0-5 /HPF (0-5)
[2017-10-03] MEDS ORDERED: COZAAR50 MG PO (22:37)
[2017-10-03] MEDS ORDERED: TOPROL XL100 MG PO (22:41)
[2017-10-03] MEDS ORDERED: FLEET ENEMA-AD118 ML PR (22:45)
[2017-10-03] MEDS ORDERED: MILK OF MAGN PO (22:45)
[2017-10-03] MEDS ORDERED: DULCOLAX10 MG PR (22:45)
[2017-10-03] MEDS ORDERED: TYLENOL REGULA325 MG PO (22:46)
[2017-10-03] MEDS ORDERED: GLUCOSE GEL38 GM PO (22:46)
[2017-10-04 01:32] LABS: BASE EXCESS 0.9 mEq/L (-3 to +3); BICARBONATE 27.7 mEq/L (22-26); CARBOXY HGB 2.1 % (0-5); COMMENTS - BLOOD GASES A+C+; DEVICE VENTI; METHEMOGLOBIN 1.1 % (0-1.5); O2 FLOW 6 L/MIN; PCO2 55 mm Hg (35-45); PO2 62 mm Hg (80-100); SITE RR; pH 7.31 (7.35-7.45)
[2017-10-04 01:33] LABS: FI02 31 %; TOTAL RESP RATE 31 resp/min
[2017-10-04 01:47] VITALS: BP 123/57
[2017-10-04 04:30] LABS: METH RESISTANT S AUREUS PCR NEGATIVE (NEGATIVE); PROBE CHECK PASS; SPECIMEN PROCESSING CONTROL PASS
[2017-10-04 06:01] LABS: BASE EXCESS -0.5 mEq/L (-3 to +3); BICARBONATE 26.4 mEq/L (22-26); CARBOXY HGB 2.2 % (0-5); METHEMOGLOBIN 1.8 % (0-1.5); PCO2 55 mm Hg (35-45); PO2 55 mm Hg (80-100); SITE RR; pH 7.29 (7.35-7.45)
[2017-10-04 06:02] LABS: COMMENTS - BLOOD GASES C+A+; DEVICE BIPAP; MECHANICAL RATE 20 resp/min; O2 FLOW 4 L/MIN
[2017-10-04 07:45] VITALS: BP 107/58
[2017-10-04 08:54] LABS: HEMATOCRIT 26.7 % (36.0-46.0); MCH 28.9 PG (29.0-34.0); MCHC 31.1 G/DL (30.0-36.0); MEAN PLAT.VOLUME 10.9 uM^3 (9.5-12.4); PLATELET COUNT 195 K/uL (156-360); RBC DIS.WIDTH-CV 12.9 % (11.8-14.6); RED BLOOD COUNT 2.87 M/uL (3.80-5.20); WHITE BLOOD COUNT 11.5 K/uL (4.1-10.2)
[2017-10-04 09:13] LABS: POINT-OF-CARE METER ID UU13113717
[2017-10-04 09:30] LABS: ANION GAP 9 MEQ/L (2-14); CHLORIDE 105 MEQ/L (99-109); GFR ESTIMATE (CALCULATED) 50 mL/min/; SAMPLE HEMOLYSIS CHECK 0; SAMPLE ICTERIC CHECK 0; SAMPLE LIPEMIA CHECK 0; SODIUM 139 MEQ/L (136-147); UREA NITROGEN (BUN) 29 mg/dL (9-23)
[2017-10-04 09:32] LABS: GLUCOSE 212 mg/dL (70-99)
[2017-10-04 11:59] LABS: BASE EXCESS -1.1 mEq/L (-3 to +3); BICARBONATE 25.2 mEq/L (22-26); METHEMOGLOBIN 1.5 % (0-1.5); pH 7.31 (7.35-7.45)
[2017-10-04 12:00] VITALS: BP 110/60
[2017-10-04 12:00] LABS: COMMENTS - BLOOD GASES A+C+; DEVICE HHFNC; FI02 50 %; O2 FLOW 40 L/MIN; PCO2 50 mm Hg (35-45); PO2 67 mm Hg (80-100); SITE RR; TOTAL RESP RATE 30 resp/min
[2017-10-04 13:23] LABS: POINT-OF-CARE METER ID UU14174225
[2017-10-04 15:10] VITALS: BP 120/69
[2017-10-04 17:01] LABS: POINT-OF-CARE METER ID UU14174225
[2017-10-04 20:40] VITALS: BP 166/85
[2017-10-04 22:55] LABS: POINT-OF-CARE METER ID UU13113717
[2017-10-04 23:27] VITALS: BP 132/80
[2017-10-05 04:18] VITALS: BP 140/90
[2017-10-05 07:04] LABS: EOSINOPHIL (%) 0 % (0-5); HEMATOCRIT 26.2 % (36.0-46.0); IMMATURE GRANULOCYTE COUNT 0.1 K/uL; INSTRUMENT ABS NEUTROPHIL CT 7.6 K/uL; LYMPHOCYTE COUNT 0.4 K/uL (1.0-2.8); MCHC 31.7 G/DL (30.0-36.0); MCV 91.6 FL (83-99); MEAN PLAT.VOLUME 9.9 uM^3 (9.5-12.4); MONOCYTE (%) 2.8 % (3-12); MONOCYTE COUNT 0.2 K/uL (0-0.8); NEUTROPHIL (%) 91.8 % (45-76); NEUTROPHIL COUNT 7.6 K/uL (1.8-6.4); RBC DIS.WIDTH-CV 12.9 % (11.8-14.6); RBC DIS.WIDTH-SD 42.7 % (39-53); RED BLOOD COUNT 2.86 M/uL (3.80-5.20); WHITE BLOOD COUNT 8.3 K/uL (4.1-10.2)
[2017-10-05 07:09] LABS: PLATELET COUNT 283 K/uL (156-360)
[2017-10-05 07:26] LABS: ALKALINE PHOSPHATASE 65 IU/L (3-129); ANION GAP 10 MEQ/L (2-14); CHLORIDE 109 MEQ/L (99-109); GFR ESTIMATE (CALCULATED) 50 mL/min/; GLUCOSE 213 mg/dL (70-99); POTASSIUM 4.6 MEQ/L (3.7-5.4); SAMPLE HEMOLYSIS CHECK 0; SAMPLE ICTERIC CHECK 0; SAMPLE LIPEMIA CHECK 0; SODIUM 142 MEQ/L (136-147); TOTAL BILIRUBIN 0.2 MG/DL (0.0-1.0); UREA NITROGEN (BUN) 35 mg/dL (9-23)
[2017-10-05 07:34] VITALS: BP 183/85
[2017-10-05 11:10] VITALS: BP 144/71
[2017-10-05 12:45] LABS: POINT-OF-CARE METER ID UU14174225
[2017-10-05 13:55] LABS: IRON 21 MCG/DL (35-150)
[2017-10-05 14:53] LABS: FERRITIN 141 NG/ML (10-291)
[2017-10-05 15:30] VITALS: BP 130/64
[2017-10-05 17:39] LABS: POINT-OF-CARE METER ID UU13113717
[2017-10-05 19:33] VITALS: BP 148/68
[2017-10-05 23:59] LABS: POINT-OF-CARE METER ID UU13113717
[2017-10-06 00:12] VITALS: BP 141/67
[2017-10-06 03:41] VITALS: BP 158/74
[2017-10-06 06:35] LABS: EOSINOPHIL (%) 0 % (0-5); HEMATOCRIT 26.2 % (36.0-46.0); IMMATURE GRANULOCYTE (%) 0.5 % (0.0-0.7); IMMATURE GRANULOCYTE COUNT 0.1 K/uL; INSTRUMENT ABS NEUTROPHIL CT 9.3 K/uL; LYMPHOCYTE COUNT 0.4 K/uL (1.0-2.8); MCH 28.2 PG (29.0-34.0); MCHC 30.5 G/DL (30.0-36.0); MCV 92.3 FL (83-99); MEAN PLAT.VOLUME 9.8 uM^3 (9.5-12.4); MONOCYTE (%) 3.6 % (3-12); MONOCYTE COUNT 0.4 K/uL (0-0.8); NEUTROPHIL (%) 92.3 % (45-76); NEUTROPHIL COUNT 9.3 K/uL (1.8-6.4); PLATELET COUNT 325 K/uL (156-360); RBC DIS.WIDTH-CV 13.1 % (11.8-14.6); RBC DIS.WIDTH-SD 43.8 % (39-53); RED BLOOD COUNT 2.84 M/uL (3.80-5.20); WHITE BLOOD COUNT 10.1 K/uL (4.1-10.2)
[2017-10-06 06:55] LABS: ALKALINE PHOSPHATASE 59 IU/L (3-129); ANION GAP 9 MEQ/L (2-14); CHLORIDE 108 MEQ/L (99-109); GFR ESTIMATE (CALCULATED) 41 mL/min/; GLUCOSE 202 mg/dL (70-99); POTASSIUM 4.7 MEQ/L (3.7-5.4); SAMPLE HEMOLYSIS CHECK 0; SAMPLE ICTERIC CHECK 0; SAMPLE LIPEMIA CHECK 0; SODIUM 142 MEQ/L (136-147); TOTAL BILIRUBIN 0.2 MG/DL (0.0-1.0); UREA NITROGEN (BUN) 40 mg/dL (9-23)
[2017-10-06 07:15] VITALS: BP 183/85
[2017-10-06 12:39] LABS: POINT-OF-CARE METER ID UU13113717
[2017-10-06 16:11] VITALS: BP 141/82
[2017-10-06 16:59] LABS: POINT-OF-CARE METER ID UU13113717
[2017-10-06 19:40] VITALS: BP 162/75
[2017-10-06 21:06] LABS: TROP-I INTERPRETATION NEGATIVE; TROPONIN-I 0.05 ng/mL (0.0-0.30)
[2017-10-06 21:11] LABS: POINT-OF-CARE METER ID UU13113717
[2017-10-06 23:39] VITALS: BP 121/86
[2017-10-07 03:48] VITALS: BP 128/85
[2017-10-07 06:11] LABS: EOSINOPHIL (%) 1.4 % (0-5); EOSINOPHIL COUNT 0.1 K/uL (0-0.3); HEMATOCRIT 25.8 % (36.0-46.0); IMMATURE GRANULOCYTE (%) 1.4 % (0.0-0.7); IMMATURE GRANULOCYTE COUNT 0.1 K/uL; LYMPHOCYTE COUNT 1.4 K/uL (1.0-2.8); MCH 29.4 PG (29.0-34.0); MCHC 31.8 G/DL (30.0-36.0); MCV 92.5 FL (83-99); MEAN PLAT.VOLUME 9.5 uM^3 (9.5-12.4); MONOCYTE (%) 9.7 % (3-12); MONOCYTE COUNT 0.8 K/uL (0-0.8); NEUTROPHIL (%) 70.4 % (45-76); NRBC (%) 0.2 /100 WBC (0-0); PLATELET COUNT 314 K/uL (156-360); RBC DIS.WIDTH-CV 13.2 % (11.8-14.6); RBC DIS.WIDTH-SD 44.6 % (39-53); RED BLOOD COUNT 2.79 M/uL (3.80-5.20); WHITE BLOOD COUNT 8.5 K/uL (4.1-10.2)
[2017-10-07 06:39] LABS: ALKALINE PHOSPHATASE 54 IU/L (3-129); ANION GAP 8 MEQ/L (2-14); CHLORIDE 108 MEQ/L (99-109); GFR ESTIMATE (CALCULATED) 38 mL/min/; POTASSIUM 4.4 MEQ/L (3.7-5.4); SAMPLE HEMOLYSIS CHECK 0; SAMPLE ICTERIC CHECK 0; SAMPLE LIPEMIA CHECK 0; SODIUM 145 MEQ/L (136-147); TOTAL BILIRUBIN 0.2 MG/DL (0.0-1.0); UREA NITROGEN (BUN) 42 mg/dL (9-23)
[2017-10-07 06:44] LABS: GLUCOSE 119 mg/dL (70-99)
[2017-10-07 07:35] VITALS: BP 162/74
[2017-10-07 09:57] LABS: BASE EXCESS 5.1 mEq/L (-3 to +3); BICARBONATE 30.8 mEq/L (22-26); COMMENTS - BLOOD GASES A+C+; DEVICE NC; METHEMOGLOBIN 1.6 % (0-1.5); O2 FLOW 2 L/MIN; PCO2 52 mm Hg (35-45); PO2 69 mm Hg (80-100); SITE RR; TOTAL RESP RATE 30 resp/min; pH 7.38 (7.35-7.45)
[2017-10-07] MEDS ORDERED: NOVOLOG PE100 UNITS/ SC (11:22)
[2017-10-07] MEDS ORDERED: PREDNISONE10 MG PO (11:22)
[2017-10-07 11:46] LABS: POINT-OF-CARE METER ID UU13113717; POINT-OF-CARE USER ID STWAMT
== END 2017-10-07 15:38 | DRG 189 ==
LOC: EME → EDBD 16:19 → EME 16:19 → 5SOUTH 10-04 00:34 → EDOF 10-04 00:34 → ENRESERV 10-04 00:38 → 5SOUTH 10-04 01:38
PROVIDERS: Emergency Medicine; Hospitalist; Internal Medicine Pulmonary Disease; Physician Assistant Medical
DX: J96.21 Acute and chronic respiratory failure with hypoxia (principal); J96.22 Acute and chronic respiratory failure with hypercapnia; R41.82 Altered mental status, unspecified; J44.1 Chronic obstructive pulmonary disease with (acute) exacerbation; Z99.81 Dependence on supplemental oxygen; I82.811 Embolism and thrombosis of superficial veins of right lower extremity; D64.9 Anemia, unspecified; I27.20 Pulmonary hypertension, unspecified; E11.9 Type 2 diabetes mellitus without complications; E88.9 Metabolic disorder, unspecified; R19.01 Right upper quadrant abdominal swelling, mass and lump; K92.1 Melena; G40.909 Epilepsy, unspecified, not intractable, without status epilepticus; E03.9 Hypothyroidism, unspecified; I10 Essential (primary) hypertension; E66.9 Obesity, unspecified; Z68.41 Body mass index [BMI] 40.0-44.9, adult; J98.11 Atelectasis; K21.9 Gastro-esophageal reflux disease without esophagitis; I25.10 Atherosclerotic heart disease of native coronary artery without angina pectoris; G47.33 Obstructive sleep apnea (adult) (pediatric); K44.9 Diaphragmatic hernia without obstruction or gangrene; F32.9 Major depressive disorder, single episode, unspecified; Z87.891 Personal history of nicotine dependence; H40.9 Unspecified glaucoma; Z79.82 Long term (current) use of aspirin; Z79.84 Long term (current) use of oral hypoglycemic drugs; Z66 Do not resuscitate; Z85.828 Personal history of other malignant neoplasm of skin
CPT/HCPCS: 36600; 70450; 71010; 71250; 80048; 80053; 81003; 82607; 82728; 82746; 82803; 82948; 83540; 83605; 84466; 84484; 85025; 85027; 87040; 87641; 87801; 90686; 93005; 93970; 94640; 94640 76; 94660; 94760; 94799; 97530 GO; 99202; 99281; 99285; C1753; C9113; J0456; J1644; J1815; J1953; J2920; J3370; J3475; J7030; J7050

== ENCOUNTER 2017-12-28 17:37 | Inpatient (IN) | payer OTHER ==
[~2017-12-28] VITALS: Ht 160 cm; Wt 81.6 kg
[~2017-12-28 17:37] MED LIST changes: +FLEET ENEMA-AD118 ML PR; +GLUCOSE GEL38 GM PO; +TOPROL XL100 MG PO
[2017-12-28 18:27] LABS: BASOPHIL (%) 0.2 % (0-1); EOSINOPHIL COUNT 0.2 K/uL (0-0.3); HEMATOCRIT 34.2 % (36.0-46.0); HEMOGLOBIN 10.6 G/DL (11.9-15.5); IMMATURE GRANULOCYTE (%) 0.7 % (0.0-0.7); LYMPHOCYTE (%) 3.8 % (15-42); LYMPHOCYTE COUNT 0.7 K/uL (1.0-2.8); MCH 28.6 PG (29.0-34.0); MCV 92.4 FL (83-99); MONOCYTE (%) 5.9 % (3-12); MONOCYTE COUNT 1.1 K/uL (0-0.8); NEUTROPHIL (%) 88.4 % (45-76); NEUTROPHIL COUNT 16.7 K/uL (1.8-6.4); PLATELET COUNT 289 K/uL (156-360); RBC DIS.WIDTH-CV 15.5 % (11.8-14.6); RBC DIS.WIDTH-SD 52.8 % (39-53); WHITE BLOOD COUNT 18.9 K/uL (4.1-10.2)
[2017-12-28 18:36] LABS: INTER. NORMALIZED RATIO 1.1
[2017-12-28 18:37] LABS: ALBUMIN 3.1 g/dL (3.2-4.8); CHLORIDE 102 mEq/L (99-109); POTASSIUM 4.4 mEq/L (3.7-5.4); SODIUM 142 mEq/L (136-147)
[2017-12-28 18:39] LABS: PTT 24.1 SEC (25-37)
[2017-12-28 18:40] LABS: GLUCOSE 153 mg/dL (70-99); TOTAL PROTEIN 6.5 g/dL (6.4-8.3)
[2017-12-28 18:41] LABS: TOTAL BILIRUBIN 0.3 mg/dL (0.0-1.0)
[2017-12-28 18:43] LABS: ALKALINE PHOSPHATASE 74 IU/L (3-129); CREATININE 1.2 mg/dL (0.6-1.3); GFR ESTIMATE (CALCULATED) 45 mL/min/
[2017-12-28 18:44] LABS: UREA NITROGEN (BUN) 16 mg/dL (9-23)
[2017-12-28 18:45] LABS: AST (GOT) 25 IU/L (2-34)
[2017-12-28 18:46] LABS: ALT (GPT) 17 IU/L (3-49)
[2017-12-28 18:47] LABS: LIPASE 8 U/L (1.0-51.0)
[2017-12-28 18:52] LABS: TROP-I INTERPRETATION NEGATIVE; TROPONIN-I 0.17 ng/mL (0.0-0.30)
[2017-12-28 21:13] LABS: APPEARANCE CLOUDY ((CLEAR)); BILIRUBIN NEGATIVE; BLOOD MODERATE; COLOR YELLOW ((YELLOW)); GLUCOSE (STRIP) NEGATIVE; KETONES 5; LEUKOCYTES LARGE; NITRITE POSITIVE; PROTEIN (STRIP) NEGATIVE; SPECIFIC GRAVITY 1.023 (1.000-1.030); UROBILINOGEN 0.2 MG/DL (0.2-1.0)
[2017-12-28 21:34] LABS: EPITHELIAL CELLS 1+ /HPF
[2017-12-28 21:35] LABS: BACTERIA 4+ /HPF; MUCUS NONE SEEN /LPF; UCUL ADDED? YES; WHITE BLOOD CELLS 40-50 /HPF (0-5)
[2017-12-28] MEDS ORDERED: LOW DOSE ASPIRI81 M1 PO (22:43)
[2017-12-28] MEDS ORDERED: COZAAR50 MG PO (22:44)
[2017-12-28] MEDS ORDERED: DIGOX125 MCG PO (22:45)
[2017-12-28] MEDS ORDERED: CRANBERRY500 M3 PO (22:45)
[2017-12-28] MEDS ORDERED: LANTUS 10100 UNITS/ SC (22:46)
[2017-12-28] MEDS ORDERED: SINGULAIR10 MG PO (22:47)
[2017-12-28] MEDS ORDERED: LASIX40 MG PO (22:47)
[2017-12-28] MEDS ORDERED: MULTI-VITAMIN1 EAC4 PO (22:48)
[2017-12-28] MEDS ORDERED: PRILOSEC20 MG PO (22:49)
[2017-12-28] MEDS ORDERED: OCUVITE TABLET1 EACH PO (22:49)
[2017-12-28] MEDS ORDERED: PREDNISONE10 MG PO (22:50)
[2017-12-28] MEDS ORDERED: K-DUR20 MEQ PO (22:50)
[2017-12-28] MEDS ORDERED: REMERON15 M2 PO (22:51)
[2017-12-28] MEDS ORDERED: SPIRIVA RESPIMAT4 GM IH (22:51)
[2017-12-28] MEDS ORDERED: TRAVATAN Z5 ML BOTH EYES (22:52)
[2017-12-28] MEDS ORDERED: [UNRECOGNIZED DRUG - CODE] SL (22:52)
[2017-12-28] MEDS ORDERED: VITAMIN D2000 UNIT PO (22:53)
[2017-12-28] MEDS ORDERED: IRON325 M1 PO (22:54)
[2017-12-28] MEDS ORDERED: COLACE100 MG PO (22:54)
[2017-12-28] MEDS ORDERED: KEPPRA250 MG PO (22:55)
[2017-12-28] MEDS ORDERED: LOPRESSOR25 MG PO (22:55)
[2017-12-28] MEDS ORDERED: TIMOPTIC-0100 DROP/1 RIGHT EYE (22:56)
[2017-12-28] MEDS ORDERED: NOVOLOG PE100 UNITS/ SC (22:57)
[2017-12-28] MEDS ORDERED: DUONEB 2.5-0.5 M3 ML AEROSOL (23:03)
[2017-12-28] MEDS ORDERED: FLEET ENEMA-AD118 ML PR (23:04)
[2017-12-28] MEDS ORDERED: GLUCAGEN1 M1 IM (23:05)
[2017-12-28] MEDS ORDERED: GLUTOSE 1537.5 GM PO (23:05)
[2017-12-28] MEDS ORDERED: TRAMADOL HCL50 MG PO (23:06)
[2017-12-28] MEDS ORDERED: MILK OF MAGN PO (23:06)
[2017-12-28] MEDS ORDERED: TYLENOL ARTHRI650 MG PO (23:07)
[2017-12-29 01:39] VITALS: BP 120/62
[2017-12-29] MEDS ORDERED: LANTUS 10100 UNITS/ SC (04:48)
[2017-12-29 06:07] LABS: ALBUMIN 2.5 G/DL (3.2-4.8); ALKALINE PHOSPHATASE 58 IU/L (3-129); ALT (GPT) 11 IU/L (3-49); AST (GOT) 16 IU/L (2-34); CHLORIDE 107 MEQ/L (99-109); CREATININE 1.2 MG/DL (0.6-1.3); GFR ESTIMATE (CALCULATED) 45 mL/min/; GLUCOSE 134 mg/dL (70-99); POTASSIUM 3.7 MEQ/L (3.7-5.4); SODIUM 143 MEQ/L (136-147); TOTAL BILIRUBIN 0.3 MG/DL (0.0-1.0); TOTAL PROTEIN 5.3 G/DL (6.4-8.3); UREA NITROGEN (BUN) 16 mg/dL (9-23)
[2017-12-29 06:09] LABS: HEMATOCRIT 32.6 % (36.0-46.0); HEMOGLOBIN 9.4 G/DL (11.9-15.5); MCH 27.9 PG (29.0-34.0); MCHC 28.8 G/DL (30.0-36.0); PLATELET COUNT 227 K/uL (156-360); RBC DIS.WIDTH-CV 15.8 % (11.8-14.6); RBC DIS.WIDTH-SD 56.7 % (39-53); RED BLOOD COUNT 3.37 M/uL (3.80-5.20); WHITE BLOOD COUNT 17.9 K/uL (4.1-10.2)
[2017-12-29 06:12] LABS: MCV 96.7 FL (83-99)
[2017-12-29 10:05] VITALS: BP 115/59
[2017-12-29 21:26] VITALS: BP 142/76
[2017-12-29 22:31] VITALS: BP 139/67
[2017-12-30 00:28] VITALS: BP 144/70
[2017-12-30 02:38] LABS: C DIFF TOXIN POSITIVE (NEGATIVE)
[2017-12-30 04:07] VITALS: BP 150/73
[2017-12-30 06:07] LABS: BASOPHIL (%) 0.3 % (0-1); EOSINOPHIL (%) 1.2 % (0-5); EOSINOPHIL COUNT 0.2 K/uL (0-0.3); HEMATOCRIT 31.4 % (36.0-46.0); HEMOGLOBIN 9.2 G/DL (11.9-15.5); IMMATURE GRANULOCYTE (%) 0.7 % (0.0-0.7); LYMPHOCYTE (%) 5.3 % (15-42); LYMPHOCYTE COUNT 0.8 K/uL (1.0-2.8); MCH 27.6 PG (29.0-34.0); MCHC 29.3 G/DL (30.0-36.0); MCV 94.3 FL (83-99); MONOCYTE (%) 6.4 % (3-12); NEUTROPHIL (%) 86.1 % (45-76); NEUTROPHIL COUNT 12.9 K/uL (1.8-6.4); PLATELET COUNT 271 K/uL (156-360); RBC DIS.WIDTH-CV 15.4 % (11.8-14.6); RBC DIS.WIDTH-SD 53.8 % (39-53); RED BLOOD COUNT 3.33 M/uL (3.80-5.20); WHITE BLOOD COUNT 14.9 K/uL (4.1-10.2)
[2017-12-30 06:38] LABS: CHLORIDE 112 MEQ/L (99-109); CREATININE 1.2 MG/DL (0.6-1.3); GFR ESTIMATE (CALCULATED) 45 mL/min/; POTASSIUM 3.4 MEQ/L (3.7-5.4); SODIUM 146 MEQ/L (136-147); UREA NITROGEN (BUN) 15 mg/dL (9-23)
[2017-12-30 06:40] LABS: GLUCOSE 94 mg/dL (70-99)
[2017-12-30 07:50] VITALS: BP 118/50
[2017-12-30 20:00] VITALS: BP 121/79
[2017-12-30 23:35] VITALS: BP 139/72
[2017-12-31 04:10] VITALS: BP 120/78
[2017-12-31 08:24] LABS: BASOPHIL (%) 0.2 % (0-1); EOSINOPHIL (%) 0 % (0-5); HEMATOCRIT 32.2 % (36.0-46.0); HEMOGLOBIN 9.5 G/DL (11.9-15.5); IMMATURE GRANULOCYTE (%) 0.9 % (0.0-0.7); LYMPHOCYTE (%) 3.8 % (15-42); LYMPHOCYTE COUNT 0.5 K/uL (1.0-2.8); MCH 27.6 PG (29.0-34.0); MCHC 29.5 G/DL (30.0-36.0); MCV 93.6 FL (83-99); MONOCYTE (%) 2.3 % (3-12); MONOCYTE COUNT 0.3 K/uL (0-0.8); NEUTROPHIL (%) 92.8 % (45-76); PLATELET COUNT 305 K/uL (156-360); RBC DIS.WIDTH-CV 15.6 % (11.8-14.6); RBC DIS.WIDTH-SD 53.3 % (39-53); RED BLOOD COUNT 3.44 M/uL (3.80-5.20); WHITE BLOOD COUNT 12.9 K/uL (4.1-10.2)
[2017-12-31 08:56] LABS: CHLORIDE 114 MEQ/L (99-109); CREATININE 1.5 MG/DL (0.6-1.3); GFR ESTIMATE (CALCULATED) 35 mL/min/; SODIUM 149 MEQ/L (136-147)
[2017-12-31 08:58] LABS: GLUCOSE 190 mg/dL (70-99); UREA NITROGEN (BUN) 23 mg/dL (9-23)
[2017-12-31 10:30] VITALS: BP 120/70
[2017-12-31 17:26] VITALS: BP 126/78
[2017-12-31 19:45] VITALS: BP 134/82
[2018-01-01] VITALS: BP 127/68
[2018-01-01 04:00] VITALS: BP 129/82
[2018-01-01 07:15] LABS: BASOPHIL (%) 0.1 % (0-1); EOSINOPHIL (%) 0.1 % (0-5); HEMATOCRIT 33.6 % (36.0-46.0); HEMOGLOBIN 9.9 G/DL (11.9-15.5); IMMATURE GRANULOCYTE (%) 0.7 % (0.0-0.7); LYMPHOCYTE (%) 7.6 % (15-42); LYMPHOCYTE COUNT 0.9 K/uL (1.0-2.8); MCHC 29.5 G/DL (30.0-36.0); MCV 95.2 FL (83-99); MONOCYTE (%) 7.6 % (3-12); MONOCYTE COUNT 0.9 K/uL (0-0.8); NEUTROPHIL (%) 83.9 % (45-76); NEUTROPHIL COUNT 10.2 K/uL (1.8-6.4); PLATELET COUNT 293 K/uL (156-360); RBC DIS.WIDTH-CV 15.9 % (11.8-14.6); RBC DIS.WIDTH-SD 55.8 % (39-53); RED BLOOD COUNT 3.53 M/uL (3.80-5.20); WHITE BLOOD COUNT 12.2 K/uL (4.1-10.2)
[2018-01-01 07:34] LABS: CHLORIDE 115 MEQ/L (99-109); CREATININE 1.6 MG/DL (0.6-1.3); GFR ESTIMATE (CALCULATED) 32 mL/min/; POTASSIUM 3.5 MEQ/L (3.7-5.4); SODIUM 153 MEQ/L (136-147); UREA NITROGEN (BUN) 25 mg/dL (9-23)
[2018-01-01 07:43] LABS: GLUCOSE 116 mg/dL (70-99)
[2018-01-01 08:25] VITALS: BP 147/78
[2018-01-01 20:06] VITALS: BP 144/75
[2018-01-01 23:43] VITALS: BP 149/96
[2018-01-02 03:20] VITALS: BP 140/64
[2018-01-02 06:45] LABS: BASOPHIL (%) 0.1 % (0-1); EOSINOPHIL (%) 0.3 % (0-5); HEMATOCRIT 30.4 % (36.0-46.0); HEMOGLOBIN 9.1 G/DL (11.9-15.5); IMMATURE GRANULOCYTE (%) 1.3 % (0.0-0.7); LYMPHOCYTE (%) 13.7 % (15-42); LYMPHOCYTE COUNT 1.1 K/uL (1.0-2.8); MCH 28.3 PG (29.0-34.0); MCHC 29.9 G/DL (30.0-36.0); MCV 94.7 FL (83-99); MONOCYTE (%) 11.1 % (3-12); MONOCYTE COUNT 0.9 K/uL (0-0.8); NEUTROPHIL (%) 73.5 % (45-76); NEUTROPHIL COUNT 5.8 K/uL (1.8-6.4); PLATELET COUNT 245 K/uL (156-360); RBC DIS.WIDTH-CV 15.6 % (11.8-14.6); RBC DIS.WIDTH-SD 54.2 % (39-53); RED BLOOD COUNT 3.21 M/uL (3.80-5.20); WHITE BLOOD COUNT 7.9 K/uL (4.1-10.2)
[2018-01-02 07:13] LABS: CHLORIDE 113 MEQ/L (99-109); CREATININE 1.3 MG/DL (0.6-1.3); GFR ESTIMATE (CALCULATED) 41 mL/min/; GLUCOSE 118 mg/dL (70-99); POTASSIUM 3.7 MEQ/L (3.7-5.4); SODIUM 149 MEQ/L (136-147); UREA NITROGEN (BUN) 25 mg/dL (9-23)
[2018-01-02 12:05] VITALS: BP 124/76
[2018-01-02 15:56] VITALS: BP 140/70
[2018-01-02 19:20] VITALS: BP 123/72
[2018-01-02 23:55] VITALS: BP 139/72
[2018-01-03 06:41] LABS: HEMATOCRIT 31.8 % (36.0-46.0); HEMOGLOBIN 9.5 G/DL (11.9-15.5); MCH 28.1 PG (29.0-34.0); MCHC 29.9 G/DL (30.0-36.0); MCV 94.1 FL (83-99); NRBC (%) 0.2 /100 WBC (0-0); PLATELET COUNT 247 K/uL (156-360); RBC DIS.WIDTH-CV 15.2 % (11.8-14.6); RBC DIS.WIDTH-SD 52.5 % (39-53); RED BLOOD COUNT 3.38 M/uL (3.80-5.20); WHITE BLOOD COUNT 9.8 K/uL (4.1-10.2)
[2018-01-03 07:14] LABS: CHLORIDE 106 MEQ/L (99-109); CREATININE 1.2 MG/DL (0.6-1.3); GFR ESTIMATE (CALCULATED) 45 mL/min/; GLUCOSE 133 mg/dL (70-99); POTASSIUM 3.9 MEQ/L (3.7-5.4); UREA NITROGEN (BUN) 27 mg/dL (9-23)
[2018-01-03 07:33] LABS: SODIUM 141 MEQ/L (136-147)
[2018-01-03 07:35] VITALS: BP 142/82
[2018-01-03 08:21] LABS: BASOPHIL (%) 0.4 % (0-1); EOSINOPHIL COUNT 0.1 K/uL (0-0.3); IMMATURE GRANULOCYTE (%) 4.1 % (0.0-0.7); LYMPHOCYTE (%) 15.9 % (15-42); LYMPHOCYTE COUNT 1.6 K/uL (1.0-2.8); MONOCYTE (%) 8.7 % (3-12); MONOCYTE COUNT 0.9 K/uL (0-0.8); NEUTROPHIL (%) 69.9 % (45-76); NEUTROPHIL COUNT 6.9 K/uL (1.8-6.4); PLAT.SUFFICIENCY ADEQUATE
[2018-01-03 16:00] VITALS: BP 142/78
[2018-01-04 00:02] VITALS: BP 158/78
[2018-01-04 08:00] VITALS: BP 140/84
== END 2018-01-04 11:22 | DRG 356 ==
LOC: EME 17:37 → 4EAST 23:11 → EDOF 23:11 → ENRESERV 23:14 → 4EAST 12-29 01:27 → ENRESERV 12-29 20:30 → 2EAST 12-29 21:58
PROVIDERS: Emergency Medicine Emergency Medical Services; Family Medicine Sports Medicine; Internal Medicine Gastroenterology
PROC: 06H03DZ Insertion of Intraluminal Device into Inferior Vena Cava, Percutaneous Approach (ICD-10-PCS; principal; 2017-12-31)
PROC: 5A09357 Assistance with Respiratory Ventilation, Less than 24 Consecutive Hours, Continuous Positive Airway Pressure (ICD-10-PCS; 2018-01-03)
DX: A04.71 Enterocolitis due to Clostridium difficile, recurrent (principal); J96.21 Acute and chronic respiratory failure with hypoxia; I26.99 Other pulmonary embolism without acute cor pulmonale; E87.0 Hyperosmolality and hypernatremia; E86.0 Dehydration; I13.0 Hypertensive heart and chronic kidney disease with heart failure and stage 1 through stage 4 chronic kidney disease, or unspecified chronic kidney disease; I50.32 Chronic diastolic (congestive) heart failure; N18.2 Chronic kidney disease, stage 2 (mild); J44.1 Chronic obstructive pulmonary disease with (acute) exacerbation; J45.901 Unspecified asthma with (acute) exacerbation; R13.10 Dysphagia, unspecified; I82.411 Acute embolism and thrombosis of right femoral vein; N39.0 Urinary tract infection, site not specified; E11.22 Type 2 diabetes mellitus with diabetic chronic kidney disease; I27.20 Pulmonary hypertension, unspecified; E66.2 Morbid (severe) obesity with alveolar hypoventilation; B96.1 Klebsiella pneumoniae [K. pneumoniae] as the cause of diseases classified elsewhere; B96.89 Other specified bacterial agents as the cause of diseases classified elsewhere; G40.909 Epilepsy, unspecified, not intractable, without status epilepticus; F03.90 Unspecified dementia, unspecified severity, without behavioral disturbance, psychotic disturbance, mood disturbance, and anxiety; G47.33 Obstructive sleep apnea (adult) (pediatric); R19.00 Intra-abdominal and pelvic swelling, mass and lump, unspecified site; K21.9 Gastro-esophageal reflux disease without esophagitis; E78.5 Hyperlipidemia, unspecified; E03.9 Hypothyroidism, unspecified; R32 Unspecified urinary incontinence; D64.9 Anemia, unspecified; F32.9 Major depressive disorder, single episode, unspecified; H40.9 Unspecified glaucoma; M19.90 Unspecified osteoarthritis, unspecified site; Z66 Do not resuscitate; G89.29 Other chronic pain; M54.5 Low back pain; R53.1 Weakness; B91 Sequelae of poliomyelitis; Z68.31 Body mass index [BMI] 31.0-31.9, adult; Z79.82 Long term (current) use of aspirin; Z79.4 Long term (current) use of insulin; Z86.718 Personal history of other venous thrombosis and embolism; Z87.01 Personal history of pneumonia (recurrent); Z87.891 Personal history of nicotine dependence
CPT/HCPCS: 70450; 71045; 71275; 74177; 80048; 80053; 81003; 82948; 83605; 83630; 83690; 83880; 84484; 85025; 85027; 85610; 85730; 87040; 87077; 87086; 87186; 87493; 87506; 87641; 92526 GN; 92610 GN; 93005; 93971; 94640; 94640 76; 94660; 94760; 94799; 99202; 99281; 99284; C1769; J0690; J0696; J0744; J1644; J1650; J1815; J1953; J2250; J2270; J2543; J2930; J3370; J3480; J7030; J7050; J7120; J7512; S0028; S0030